=== PATIENT | female | born 1960 | race Caucasian/White ===

== ENCOUNTER 2016-08-12 13:36 | Emergency (ER) | payer OTHER | END 2016-08-12 14:28 | disposition home or self-care (01) | LOC: FER 13:36 | DX: T19.2XXA Foreign body in vulva and vagina, initial encounter (principal); F31.9 Bipolar disorder, unspecified; F17.210 Nicotine dependence, cigarettes, uncomplicated; Z79.899 Other long term (current) drug therapy; Z85.43 Personal history of malignant neoplasm of ovary | CPT/HCPCS: 99283 ==

== ENCOUNTER 2020-08-10 14:36 | Emergency (ER) | payer OTHER ==
[~2020-08-10 14:36] MED LIST: ALLERGY MEDICAT25 MG PO; ASPIRIN CHEWABL81 MG PO; AZELASTINE205.5 MCG/; BREO ELLIPTA 11 EACH INH; BROMFED DM COU473 ML PO; CERTAGEN1 EACH PO; CLONAZEPAM 1MG T1 MG PO; COLESTID 1GM TAB1 GM PO; EVISTA60 M1 PO; FLONASE ALLER15.8 ML; FLONASE ALLER15.8 ML INH; FLOVENT HFA12 GM INH; HYDROCODONE-APA1 TAB PO; LAMICTAL100 MG PO; NASACORT16.9 ML; NEURONTIN100 MG PO; NORCO 5-325 TA1 EACH PO; ONDANSETRON HCL4 MG PO; PERCOCET 5-3251 EACH PO; SINGULAIR10 MG PO; SUCRALFATE1 GM PO; TRAZODONE HCL300 MG PO; VENTOLIN HFA IN18 GM INH; VITAMIN B12-FO1 EACH PO; VITAMIN D32000 UNIT PO; VOLTAREN **OUT75 MG PO; ZOLOFT100 MG PO
[2020-08-10] MEDS ORDERED: AUGMENTIN 875-1 EACH PO (15:32)
[2020-08-10] MEDS ORDERED: NORCO 5-325 TA1 EACH PO (15:32)
== END 2020-08-10 16:18 | disposition home or self-care (01) ==
LOC: FER 14:36
DX: K04.7 Periapical abscess without sinus (principal); E11.9 Type 2 diabetes mellitus without complications; J45.909 Unspecified asthma, uncomplicated
CPT/HCPCS: 99283; J1885

== ENCOUNTER → 2021-01-07 | Day surgery (SDC) | payer OTHER ==
[~2021-01-07] VITALS: Ht 157.5 cm; Wt 62.1 kg
[~2021-01-07] MED LIST changes: +AUGMENTIN 875-1 EACH PO; +COGENTIN PO; +CYMBALTA60 MG PO; +DICLOFENAC SODI75 MG PO; +DOXEPIN HCL50 MG PO; +EVENING PRIMRO1 EACH PO; +METFORMIN PO; +PRAVASTATIN SOD80 MG PO; +SYMBICORT 16010.2 GM INH; +VITAMIN B-121000 MC1 PO; +VITAMIN D350 MC3 PO; +VITAMIN E1000 UNIT PO
[2021-01-07 07:12] LABS: HCT 41.6 % (37.0-47.0); MCH 32.5 pg (25.0-31.0); MCHC 33.7 g/dL (32.0-36.0); MCV 96.5 fL (78.0-100.0); MPV 8.7 fL (6.0-9.5); RBC 4.31 M/uL (4.20-5.40); RDW 12.5 % (11.5-14.0); WBC 5.7 K/uL (4.0-10.5)
[2021-01-07 07:36] LABS: ALBUMIN 3.5 g/dL (3.4-5.0); BILIRUBIN - TOTAL 0.6 mg/dL (0.2-1.0); BUN/CREAT RATIO (CALC) 8.3 RATIO; CREATININE 0.72 mg/dL (0.51-0.95); GLOBULIN (CALCULATION) 3.8 g/dL; POTASSIUM 3.8 mmol/L (3.5-5.1); TOTAL PROTEIN 7.3 g/dL (6.4-8.2)
== END | disposition home or self-care (01) ==
LOC: FAS 06:30
PROVIDERS: Orthopaedic Surgery
DX: S43.431A Superior glenoid labrum lesion of right shoulder, initial encounter (principal); M19.011 Primary osteoarthritis, right shoulder; M75.51 Bursitis of right shoulder; M75.91 Shoulder lesion, unspecified, right shoulder; M75.01 Adhesive capsulitis of right shoulder; J45.909 Unspecified asthma, uncomplicated; E11.9 Type 2 diabetes mellitus without complications; E78.5 Hyperlipidemia, unspecified; X58.XXXA Exposure to other specified factors, initial encounter; Y92.9 Unspecified place or not applicable
CPT/HCPCS: 36415; 71045; 80053; 93005; J0171; J0690; J1100; J2250; J2405; J2704; J2710; J2795; J3010; J7120

== ENCOUNTER → 2021-09-18 | Day surgery (SDC) | payer OTHER ==
[~2021-09-18] VITALS: Ht 157.5 cm; Wt 54.4 kg
[~2021-09-18] MED LIST changes: +FLOMAX0.4 MG PO; +HYDROXYZINE PAM25 MG PO; +REQUIP1 MG PO
[2021-09-18 11:19] LABS: HCT 39.9 % (37.0-47.0); HGB 13.6 g/dl (12.5-16.0); MCH 31.6 pg (25.0-31.0); MCHC 34.1 g/dL (32.0-36.0); MCV 92.6 fL (78.0-100.0); MPV 8.9 fL (6.0-9.5); RBC 4.31 M/uL (4.20-5.40); RDW 12.9 % (11.5-14.0); WBC 6.4 K/uL (4.0-10.5)
[2021-09-18 11:49] LABS: ALBUMIN 3.4 g/dL (3.4-5.0); BILIRUBIN - TOTAL 0.6 mg/dL (0.2-1.0); BUN/CREAT RATIO (CALC) 9.3 RATIO; CREATININE 0.75 mg/dL (0.51-0.95); GLOBULIN (CALCULATION) 3.3 g/dL; TOTAL PROTEIN 6.7 g/dL (6.4-8.2)
== END | disposition home or self-care (01) ==
LOC: FAS 09:53
PROVIDERS: Surgery
DX: K21.00 Gastro-esophageal reflux disease with esophagitis, without bleeding (principal); K29.70 Gastritis, unspecified, without bleeding; K31.9 Disease of stomach and duodenum, unspecified; R07.2 Precordial pain; E78.5 Hyperlipidemia, unspecified; F31.9 Bipolar disorder, unspecified; F41.9 Anxiety disorder, unspecified; Z79.899 Other long term (current) drug therapy
CPT/HCPCS: 36415; 80053; J2250; J2704; J7120